=== PATIENT | male | born 2000 | race Caucasian/White ===

== ENCOUNTER 2021-01-01 22:52 | Emergency (ER) | payer OTHER ==
[~2021-01-01] VITALS: Ht 193 cm; Wt 113.4 kg
[2021-01-02] MEDS ORDERED: CEPH500 PO (03:03)
== END 2021-01-02 03:15 | disposition home or self-care (01) ==
LOC: ER 22:52
DX: L03.115 Cellulitis of right lower limb (principal)
CPT/HCPCS: 93971; 99282

== ENCOUNTER 2021-01-07 08:50 | Emergency (ER) | payer OTHER ==
[~2021-01-07] VITALS: Ht 182.9 cm; Wt 99.8 kg
[~2021-01-07 08:50] MED LIST: CEPH500 PO
[2021-01-07] MEDS ORDERED: BENADRYL25 MG PO (09:23)
[2021-01-07] MEDS ORDERED: Pepcid20 MG PO (09:23)
== END 2021-01-07 09:55 | disposition home or self-care (01) ==
LOC: ER 08:50
DX: L23.7 Allergic contact dermatitis due to plants, except food (principal); Z79.899 Other long term (current) drug therapy
CPT/HCPCS: 96372; 99282-25; A9270; J1100